=== PATIENT | male | born 1990 | race Caucasian/White ===

== ENCOUNTER 2021-11-14 18:06 | Emergency (ER) | payer OTHER ==
[2021-11-14] MEDS ORDERED: CEPHALEXIN500 M1 PO (19:20)
[2021-11-14 20:10] VITALS: BP 128/84
== END 2021-11-14 20:11 | disposition home or self-care (01) ==
LOC: ED 18:06
DX: S01.312A Laceration without foreign body of left ear, initial encounter (principal); T67.1XXA Heat syncope, initial encounter; E86.9 Volume depletion, unspecified; Z28.310 Unvaccinated for COVID-19; W01.198A Fall on same level from slipping, tripping and stumbling with subsequent striking against other object, initial encounter; Y93.01 Activity, walking, marching and hiking
CPT/HCPCS: J0696